=== PATIENT | male | born 1990 | race Two or more races ===

== ENCOUNTER 2018-12-08 05:46 | Inpatient (IN) | payer BC, OTHER ==
[~2018-12-08] VITALS: Ht 180.3 cm; Wt 87.1 kg
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
[2018-12-08] MEDS ORDERED: IV NS 0.9% 1,000 ML BAG IV ONE (06:00)
--- NOTE | 2018-12-08 06:05 | NUR ---
PT AMBULATED WITH STEADY GAIT AND URINE SAMPLE OBTAINED. SENT TO LAB.
--- NOTE | 2018-12-08 06:24 | NUR ---
XRAY AT BEDSIDE.
--- NOTE | 2018-12-08 06:25 | NUR ---
ANIMAL NURSERY WORKER AT BEDSIDE. LABS DRAWN AND SENT TO LAB.
[2018-12-08 06:28] LABS: BASOPHILS # (AUTO) 0.1 /CMM (0.0-0.2); BASOPHILS % (AUTO) 0.3 % (0.0-2.0); EOSINOPHILS % (AUTO) 0.1 % (0.0-6.0); HEMATOCRIT 41 % (39-51); HEMOGLOBIN 13.9 g/dL (13.5-17.5); LYMPHOCYTES # (AUTO) 2.3 /CMM (0.8-4.8); LYMPHOCYTES % (AUTO) 10.3 % (20.0-44.0); MEAN CORPUSCULAR HGB CONC 34 g/dl (31.0-36.0); MEAN CORPUSCULAR VOLUME 89 fL (80-96); MONOCYTES # (AUTO) 1.3 /CMM (0.1-1.30); MONOCYTES % (AUTO) 5.9 % (2.0-12.0); NEUTROPHILS # (AUTO) 18.8 /CMM (1.8-8.9); NEUTROPHILS % (AUTO) 83.4 % (43.0-81.0); PLATELET COUNT (AUTO) 183 /CMM (150-450); RED BLOOD CELL COUNT(AUTO) 4.63 MIL/uL (4.5-6.0); WHITE BLOOD COUNT (AUTO) 22.6 K/uL (4.3-11.0)
[2018-12-08 06:29] LABS: CALCIUM, SERUM 8.7 mg/dL (8.5-10.1); CARBON DIOXIDE 22 mmol/L (21-32); CHLORIDE 93 mmol/L (98-107); CREATININE 1.9 mg/dL (0.6-1.3); GLUCOSE 86 mg/dL (74-106); POTASSIUM 3.8 mmol/L (3.5-5.1); SODIUM SERUM 132 mmol/L (136-145); UREA NITROGEN, BLOOD 23 mg/dL (7-18)
--- NOTE | 2018-12-08 06:30 | NUR ---
BENITA PENNY AT BEDSIDE.
[2018-12-08 06:33] LABS: APPEARANCE,URINE SL CLOUDY (CLEAR); BILIRUBIN,URINE 1+ (NEGATIVE); BLOOD, URINE 3+ Ery/uL (NEGATIVE); COLOR,URINE YELLOW (YELLOW); KETONES,URINE 1+ (NEGATIVE); NITRITE, URINE NEGATIVE (NEGATIVE); PH,URINE 5.5 (5.0-8.0); PROTEIN,URINE 2+ mg/dl (NEGATIVE); UGLUCOSE NEGATIVE (NEGATIVE); UROBILINOGEN,URINE 0.2 EU/dL (0.2)
[2018-12-08 06:35] LABS: ALANINE AMINOTRANSFERASE 126 U/L (12-78); ALBUMIN 3.8 g/dL (3.4-5.0); ALKALINE PHOSPHATASE 88 U/L (46-116); ASPARTATE AMINOTRANSFERASE 463 U/L (15-37); BILIRUBIN,DIRECT 0.5 mg/dL (0.0-0.2); BILIRUBIN,TOTAL 1.7 mg/dL (0.2-1.0); TOTAL PROTEIN, SERUM 8.5 g/dL (6.4-8.2)
[2018-12-08 06:36] LABS: ACETAMINOPHEN 0 ug/ml (10-30); ALCOHOL, BLOOD < 3 mg/dL (0-0); SALICYLATE 0.4 mg/dL (2.8-20.0)
[2018-12-08 06:45] LABS: LEUKOCYTE ESTERASE ,URINE 2+ (NEGATIVE)
[2018-12-08 06:46] LABS: BACTERIA,URINE Few /HPF (None Seen); SQUAMOUS EPITHELIAL CELL,UR Few /HPF (None Seen); WBC,URINE 21-50 /HPF (0-3)
--- NOTE | 2018-12-08 06:46 | NUR ---
Otis castellanos in ED - 12/08/18 at 0646 by JONAH C T TECH AT BEDSIDE. LABS DRAWN AND SENT TO LAB.
--- NOTE | 2018-12-08 07:19 | NUR ---
REPORT GIVEN TO KALEY MASTERS FOR LILA.
[2018-12-08] MEDS ORDERED: IV NS 0.9% 1,000 ML IV ONE (07:30)
--- NOTE | 2018-12-08 07:55 | NUR ---
PT CURRENTLY ON MONITOR ST AT 121 PT ALERT AND ORIENTED X 4 FLUIDS INFUSED PENDING MD RE-EVALUATION PT HOMELESS WILL CONTINUE TO MONITOR
[2018-12-08] MEDS ORDERED: CEFTRIAXONE 1GM BAG (ER ONLY) 1 GM/50 ML PIGGYBACK IV ONE (08:30)
[2018-12-08] MEDS ORDERED: CEFTRIAXONE 1GM BAG (ER ONLY) 50 ML IV ONE (08:42)
--- NOTE | 2018-12-08 09:14 | NUR ---
PT GIVEN SECOND LITER OF FLUID AND MEAL TRAY
--- NOTE | 2018-12-08 09:58 | NUR ---
PT PULLED PIV OUT BELIEVES SOME IS OUT TO GET HIM
[2018-12-08] MEDS ORDERED: MAG HYDROX/AL HYDROX/SIMETH 30 ML UDC PO PRN (10:00)
[2018-12-08] MEDS ORDERED: MAGNESIUM HYDROXIDE 30 ML UDC PO PRN (10:00)
[2018-12-08] MEDS ORDERED: ONDANSETRON HCL/PF 4 MG/2 ML VIAL IVP PRN (10:00)
[2018-12-08] MEDS ORDERED: ACETAMINOPHEN 325 MG TABLET PO PRN (10:00)
[2018-12-08] MEDS ORDERED: Z GUARD REMEDY 2 OZ OINT TP PRN (10:00)
[2018-12-08] MEDS ORDERED: ZOLPIDEM TARTRATE 5 MG TABLET PO PRN (10:00)
--- NOTE | 2018-12-08 10:45 | NUR ---
RN REPORT GIVEN TO JAROD PT ROOM 312-1 ADMITTING MD CASH
--- NOTE | 2018-12-08 11:05 | NUR ---
MS LEGAL ENTITY CONTROLLER NOTE RECEIVED PT FROM ER VIA [facility] WITH DX OF RHABDOMYOLYSIS, ADMITTING UNDER DR. YOUNG. PT IS ALERT AND ORIENTED TO SELF ONLY, STATES THAT "30,000 PEOPLE IN [place] WANT TO KILL ME". PT DENIES CURRENT SUICIDAL IDEATION, BUT STATES THAT HE HAS ATTEMPTED IN THE PAST, DECLINED TO STATE WHEN. PT DENIES AUDITORY HALLUCINATIONS AT THIS TIME, PT STATES HE "SEES A SHADOW" SOMETIMES. DENIES THAT THE SHADOW OR ANYONE TALKS TO HIM, DENIES COMMAND HALLUCINATIONS AT THIS TIME. RIGHT AC #20G IV IS PATENT, CLEAN, DRY AND INTACT. PT BELONGINGS ACCOUNTED FOR, PT DECLINED SIGNING SHEET. PT DECLINING FULL BODY ASSESSMENT AND HEAD TO TOE, DECLINING TO BE PLACED IN GOWN. EDUCATION PROVIDED, PT DECLINED AGAIN. PT IS ANXIOUS AND UNABLE TO STAY SEATED IN BED. SITTER AT THE BEDSIDE FOR SAFETY. UNIT ORIENTATION PROVIDED. BED IS LOCKED AND IN LOWEST POSITING, SIDE RAILS UP X2, CALL LIGHT WITHIN REACH.
[2018-12-08 11:15] VITALS: BP 146/95
--- NOTE | 2018-12-08 11:24 | NUR ---
MS RN NOTE INFORMED THAT PT IS ANXIOUS AND NOT SITTING IN BED. ORDERS RECEIVED FOR ATIVAN 1MG IV Q4H PRN AND PSYCH CONSULT.
[2018-12-08] MEDS: IV NS 0.9% 1,000 ML IV PRN ×2 (11:34→18:06)
[2018-12-08] MEDS: LORAZEPAM INJ 2 MG/ML VIAL IV PRN ×3 (11:35→22:53)
--- NOTE | 2018-12-08 11:35 | NUR ---
MS RN NOTE ATIVAN 1MG PRN FOR ANXIETY ADMINISTERED ORDERED.
--- NOTE | 2018-12-08 11:55 | NUR ---
MS RN NOTE FACE SHEET FAXED TO [facility] FOR PSYCH CONSULT. CONFIRMED WITH WONG REGARDING PT DETAILS.
--- NOTE | 2018-12-08 15:00 | NUR ---
MS RN NOTE DR. MCKEON AT THE BEDSIDE FOR PSYCH CONSULT.
[2018-12-08 16:00] VITALS: BP 141/87
--- NOTE | 2018-12-08 16:31 | NUR ---
MS RN NOTE ATIVAN 1MG IV ADMINISTERED FOR AGITATION AND ANXIETY. PT PACING AND STATES "I'M GOING TO LEAVE AND GIVE THIS PLACE ZERO STARS". VS OBTAINED AND WITHIN BASELINE SINCE ADMISSION.
--- NOTE | 2018-12-08 18:18 | NUR ---
MS RN CLOSING NOTE PT IN BED, ALERT AND ORIENTED X1-2 WITH EPISODES OF PARANOIA, DELUSIONS AND ANXIETY. PT IS NOT COMBATIVE AND RE-DIRECTABLE AT THIS TIME. PT DENIES SI AND AUDITORY OR COMMAND HALLUCINATIONS, STATES HE HAS VISUAL HALLUCINATIONS OF A SHADOW "SOMETIMES". PT DENIES PLANS TO HARM HIMSELF OR ANYONE WHILE IN THE HOSPITAL. BREATHING IS EVEN AND UNLABORED ON ROOM AIR, NO ACUTE DISTRESS NOTED AT THIS TIME. RIGHT AC #20G IV IS INFUSING NS @ 150ML/HR WITHOUT REDNESS OR SWELLING. PT STILL REFUSING FULL BODY/SKIN CHECK AND PHOTOS AT THIS TIME. EDUCATION PROVIDED, PT STILL REFUSING. SITTER AT THE BEDSIDE FOR SAFETY. ALL NEEDS ATTENDED TO, SAFETY CHECKS COMPLETED PER PROTOCOL. BED IS LOCKED AND IN LOWEST POSITION, SIDE RAILS UP X2, CALL LIGHT AND POSSESSIONS WITHIN REACH. WILL ENDORSE TO DRILLER'S OFFSIDER NURSE FOR CONTINUITY OF CARE.
--- NOTE | 2018-12-08 19:38 | NUR ---
RN OPENING NOTES RECEIVED PATIENT IN BED, ALERT AND ORIENTED X1-2. PATIENT IS NOT EXPERIENCING ANY EPISODES OF PARANOIA, DELUSIONS, AND ANXIETY AT THIS TIME. PATIENT IS NOT COMBATIVE AT THIS TIME. PATIENT DENIES SI AND HALLUCINATIONS. PATIENT DENIES PLANS TO HARM HIMSELF OR ANYONE IN THE HOSPITAL. BREATHING IS EVEN AND UNLABORED ON ROOM AIR. NO RESPIRATORY DISTRESS NOTED AT THIS TIME. IV SITE PATENT AND INTACT. PATIENT REFUSES FULL BODY SKIN CHECK AND PHOTOS AT THIS TIME. PATIENT HAS SITTER AT BEDSIDE, DANTE. SAFETY PRECAUTIONS IMPLEMENTED. CALL LIGHT WITHIN REACH. WILL CONTINUE TO MONITOR PATIENT THROUGHOUT THE SHIFT.
[2018-12-08 20:00] VITALS: BP 105/62
[2018-12-08] MEDS: OLANZAPINE 5 MG/TAB.RAPDIS PO SCH (22:00)
--- NOTE | 2018-12-08 22:10 | NUR ---
RN NOTES PATIENT WAS COMPLIANT WITH WOUND DOCUMENTATION AND PICTURES
--- NOTE | 2018-12-08 22:42 | NUR ---
RN NOTES PATIENT REFUSES OLANZAPINE. I STATED THE BENEFITS AND RISKS FOR THE MEDICATION. PATIENT STILL REFUSED OLANZAPINE.
[2018-12-08 23:00] VITALS: BP 111/64
[2018-12-09] MEDS: IV NS 0.9% 1,000 ML IV PRN ×3 (02:38→20:31)
--- NOTE | 2018-12-09 06:29 | NUR ---
RN CLOSING NOTES PATIENT IS RESTING COMFORTABLY IN BED. PATIENT DID NOT SHOW ANY SIGNS OF PSYCHOSIS DURING THE SHIFT. PATIENT WAS NOT COMBATIVE DURING THE SHIFT. NO SIGNS OF RESPIRATORY DISTRESS. NO SIGNS OF SHORTNESS OF BREATH. IV SITE PATENT AND INTACT. PATIENT HAS SITTER AT BEDSIDE, [facility]. SAFETY PRECAUTIONS IMPLEMENTED. CALL LIGHT WITHIN REACH. WILL ENDORSE TO ONCOMING AM RN.
[2018-12-09 07:32] LABS: BASOPHILS % (AUTO) 0.5 % (0.0-2.0); EOSINOPHILS % (AUTO) 2.2 % (0.0-6.0); HEMATOCRIT 34 % (39-51); HEMOGLOBIN 11.9 g/dL (13.5-17.5); LYMPHOCYTES # (AUTO) 1.2 /CMM (0.8-4.8); MEAN CORPUSCULAR HGB CONC 35 g/dl (31.0-36.0); MEAN CORPUSCULAR VOLUME 89 fL (80-96); MONOCYTES # (AUTO) 0.5 /CMM (0.1-1.30); MONOCYTES % (AUTO) 6.6 % (2.0-12.0); NEUTROPHILS # (AUTO) 5.8 /CMM (1.8-8.9); NEUTROPHILS % (AUTO) 74.7 % (43.0-81.0); PLATELET COUNT (AUTO) 125 /CMM (150-450); RED BLOOD CELL COUNT(AUTO) 3.82 MIL/uL (4.5-6.0); WHITE BLOOD COUNT (AUTO) 7.7 K/uL (4.3-11.0)
[2018-12-09 07:47] LABS: ALBUMIN 2.6 g/dL (3.4-5.0); BILIRUBIN,TOTAL 0.7 mg/dL (0.2-1.0); CALCIUM, SERUM 7.8 mg/dL (8.5-10.1); CREATININE 0.9 mg/dL (0.6-1.3); MAGNESIUM 2.1 mg/dL (1.8-2.4); PHOSPHORUS 1.5 mg/dL (2.5-4.9); POTASSIUM 3.3 mmol/L (3.5-5.1); TOTAL PROTEIN, SERUM 6.3 g/dL (6.4-8.2)
[2018-12-09 07:56] LABS: THYROID STIMULATING HORMONE 1.183 uIU/mL (0.358-3.74)
--- NOTE | 2018-12-09 08:03 | NUR ---
RN OPENING NOTE PT WAS RECEIVED IN BED AT LOWEST AND LOCKED POSITION WITH SIDE RAILS UP X2, A/O X1-2 WITH SITTER PRESENT AT BEDSIDE, NO S/S OR CURRENT COMPLAINTS OF ANY PAIN OR DISTRESS NOTED AT THIS TIME, IV IS PATENT AND INTACT WITH IVF CURRENTLY INFUSING, SAFETY PRECAUTIONS IN PLACE, CALL LIGHT WITHIN REACH, WILL MONITOR ACCORDINGLY
[2018-12-09 08:05] VITALS: BP 122/73
[2018-12-09] MEDS: CEFTRIAXONE 1 G in IV D5W 50 ML IV SCH (08:13)
[2018-12-09] MEDS: OLANZAPINE 5 MG/TAB.RAPDIS PO SCH ×3 (08:22→21:15)
--- NOTE | 2018-12-09 09:00 | NUR ---
RN NOTE PATIENT REFUSED OLANZAPINE AT THIS TIME. HE STATED "IT MAKES ME SLEEPY AND TIRED, I DO NOT WANT IT". EDUCATION ABOUT THE BENEFITS AND RISKS WERE EXPLAINED TO THE PATIENT HE STILL REFUSED TO TAKE THE MED AT THIS TIME.
[2018-12-09] MEDS ORDERED: K PHOS NEUTRAL 250 MG TABLET PO ONE (11:30)
[2018-12-09] MEDS ORDERED: POTASSIUM CHLORIDE 20 MEQ TAB.PRT.SR PO SCH (11:30)
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
[2018-12-09 16:17] VITALS: BP 121/72
--- NOTE | 2018-12-09 18:50 | NUR ---
RN CLOSING NOTE PT IN BED AT LOWEST AND LOCKED POSITION WITH SIDE RAILS UP X2, A/O X1-2 WITH SITTER PRESENT AT BEDSIDE, NO CURRENT COMPLAINTS OF ANY PAIN OR DISTRESS, IV IS PATENT AND INTACT WITH IVF CURRENTLY INFUSING, SAFETY PRECAUTIONS IN PLACE, CALL LIGHT WITHIN REACH, WILL ENDORSE TO ONCOMING TOE FORMER STITCHDOWNS RN FOR LILA.
--- NOTE | 2018-12-09 19:16 | NUR ---
RN MS OPENING NOTES RECEIVED REPORT AT BEDSIDE, PT SITTING UP IN BED, AWAKE ALERT ORIENTEDX2-3, BREATHING EVEN AND UNLABORED ON ROOM AIR, NO COMPLAINT OF PAIN OR DISCOMFORT AT THIS TIME. IV ACCESS ON THE R AC 20G WITH NS @150/HR. BED IN LOWEST LOCKED POSITION, SITTER AT BED SIDE, CALL LIGHT WITHIN REACH AT ALL TIMES, WILL CONTINUE TO MONITOR
[2018-12-09 19:26] VITALS: BP 111/71
[2018-12-09] MEDS: LORAZEPAM INJ 2 MG/ML VIAL IV PRN (21:19)
[2018-12-09] MEDS ORDERED: QUETIAPINE FUMARATE 100 MG TABLET PO SCH (22:00)
[2018-12-09 23:48] VITALS: BP 111/71
[2018-12-10] MEDS: IV NS 0.9% 1,000 ML IV PRN (03:24)
--- NOTE | 2018-12-10 06:19 | NUR ---
RN MS CLOSING NOTES PT REMAINS IN BED, SLEEPING EASILY AROUSED TO NAME CALL, BREATHING EVEN AND UNLABORED ON ROOM AIR, IN NO APPARENT PAIN OR DISCOMFORT AT THIS TIME. IV ACCESS ON THE R AC 20G WITH NS @150/HR. BED IN LOWEST LOCKED POSITION, SITTER AT BED SIDE, CALL LIGHT WITHIN REACH AT ALL TIMES, WILL ENDORSE TO DAY NURSE FOR LILA
--- NOTE | 2018-12-10 07:29 | NUR ---
MS RN OPENING NOTES RECEIVED PT AWAKE IN BED IN NO ACUTE SIGNS OF DISTRESS. QUIET AND CALMED. A/O X 2-3. ABLE TO MAKE NEEDS KNOWN. DENIES PAIN OR ANY DISCOMFORTS AT THIS TIME. DENIES HI/SI. BREATHING EVEN AND UNLABORED ON ROOM AIR. IV ACCESS ON THE RAC #20G WITH NS @15 0ML/HR INFUSING WELL, NO S/S OF INFILTRATIONS NOTED. ALL SAFETY MEASURES IN PLACE. BED IN LOWEST LOCKED POSITION, SITTER AT BED SIDE, CALL LIGHT WITHIN REACH AT ALL TIMES, WILL CONTINUE TO MONITOR ACCORDINGLY.
[2018-12-10 07:41] LABS: CALCIUM, SERUM 7.9 mg/dL (8.5-10.1); CREATININE 0.7 mg/dL (0.6-1.3); PHOSPHORUS 2.4 mg/dL (2.5-4.9); POTASSIUM 3.4 mmol/L (3.5-5.1)
[2018-12-10] MEDS: CEFTRIAXONE 1 G in IV D5W 50 ML IV SCH (07:56)
[2018-12-10 08:00] VITALS: BP 132/81
[2018-12-10] MEDS: OLANZAPINE 5 MG/TAB.RAPDIS PO SCH (08:47)
[2018-12-10] MEDS ORDERED: POTASSIUM CHLORIDE 20 MEQ TAB.PRT.SR PO SCH (10:30)
[2018-12-10] MEDS ORDERED: K PHOS NEUTRAL 250 MG TABLET PO ONE (13:00)
--- NOTE | 2018-12-10 15:48 | NUR ---
Social service consult requested by Dr. Jong Maddox MD. for homelessness with a history of psychiatric disorders. Pt. is a 28 year old male who was admitted to [facility] for rhabdomyolysis, dehydration. SW met with pt. at bedside. Pt. has sitter for safety at his side. Pt. was laying down in his bed. Pt. is ambulatory. Pt. is alert and oriented x3. Pt. states that he is originally from [place] and plans to return after discharge. Pt. 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 Patient is currently residing with a friend at [address] [place] [address]. Pt. states that he has a great support system in [place], and is able to receive financial support from his mother if necessary. Pt. states that he is a binge drinker, and tends to spiral out of control when he uses. Pt. also states that he has a history of cocaine use, and recently used cocaine that he did not know was laced with methamphetamine. Pt. denied current marijuana and cigarette use. Pt. states he has a mental health diagnosis of depression and mild schizophrenia. Pt. denied current suicidal ideation at this time. Pt. states he has a history of hallucinatory symptoms, but is not currently experiencing hallucinations at this moment. Pt. was seen by psychiatrist Dr. Meneses while at [facility]. Pt. states he has a mental health provider in [place] and is also prescribed psychiatric medication but is non-compliant because he feels his symptoms are only triggered by his alcohol use. Pt. also shared he attended an alcohol rehabilitation center in [place] in March 2018, but he did not complete the program as he did not find it useful. Pt. states he will be attending AA meetings when he returns to [place] because he finds them supportive. Pt. will require a taxi voucher to return to the home he is currently residing at upon discharge. No other services needed at this time. SW is available if needed. SPENCER updated Director Of Public Relations Namita regarding patients discharge plan.
[2018-12-10 16:00] VITALS: BP 131/82
--- NOTE | 2018-12-10 18:40 | NUR ---
FRUIT CUTTER NOTES PATIENT DISCHARGE HOME IN STABLE CONDITION. A/O X4. ABLE TO VERBALIZED NEEDS AND AMBULATORY. V/S TAKEN RECORDED. IV ACCESS REMOVED WITH NO BLEEDING NOTED. NAME WRISTBAND REMOVED. ALL BELONGINGS ACCOUNTED FOR AND SIGNED FORM. DISCHARGE INSTRUCTIONS/ HEALTH TEACHINGS GIVEN AND VERBALIZED UNDERSTANDING. PATIENT GIVEN BUS TAP CARD FOR TRANSPORTATION. PATIENT LEFT UNIT AMBULATORY AT 1830 STATED THAT HE WILL GO TO HIS FRIEND. CHARGE NURSE AWARE OF DISCHARGE.
[2018-12-10] MEDS ORDERED: QUETIAPINE FUMARATE 25 MG TABLET PO SCH (22:00)
== END 2018-12-10 18:33 | disposition home or self-care (01) | DRG 557 ==
LOC: ER 05:48 → MED 10:16
PROVIDERS: ADMIT Internal Medicine; ATTEND Internal Medicine
DX: M62.82 Rhabdomyolysis (principal); N17.0 Acute kidney failure with tubular necrosis; G92 Toxic encephalopathy; I21.A1 Myocardial infarction type 2; N39.0 Urinary tract infection, site not specified; E87.1 Hypo-osmolality and hyponatremia; F19.20 Other psychoactive substance dependence, uncomplicated; F20.9 Schizophrenia, unspecified; F32.9 Major depressive disorder, single episode, unspecified; F17.200 Nicotine dependence, unspecified, uncomplicated; F29 Unspecified psychosis not due to a substance or known physiological condition; F39 Unspecified mood [affective] disorder
CPT/HCPCS: 36415; 71045-TC; 80048-TC; 80053-TC; 80076-TC; 80305; 81000-TC; 82550-TC; 83735-TC; 84100-TC; 84443-TC; 84484-TC; 85025-TC; 87081-TC; 87086-TC; G0378; G0480; J0696; J2060; J7030; J7060